=== PATIENT | male | born 1950 | race Two or more races ===

== ENCOUNTER 2024-11-13 13:08 | Emergency (ER) | payer OTHER, BC ==
[~2024-11-13] VITALS: Ht 182.9 cm; Wt 82.6 kg
[2024-11-13] MEDS ORDERED: ELIQUIS5 MG PO (13:45)
[2024-11-13 15:10] LABS: HEMOGLOBIN 13.7 g/dL (13-16.00); MEAN CELL VOLUME 92.9 fL (80.0-100.00); MEAN CORPUSCULAR HEMOGLOBIN 31.2 pg (27.00-32.0); MEAN CORPUSCULAR HGB CONC 33.5 g/dl (32.0-36.0); PLATELET COUNT 308 K/uL (150-450); RED BLOOD COUNT 4.41 M/uL (4.00-6.00); RED CELL DISTRIBUTION WIDTH 12.8 % (11.5-14.5)
[2024-11-13 15:15] LABS: ERYTHROCYTE SEDIMENTATION RATE 11 mm/hr
[2024-11-13 15:40] LABS: PARTIAL THROMBOPLASTIN TIME 28.7 SECONDS (22.0-34.0); PROTHROMBIN TIME 10.9 SECONDS (9.0-11.5)
[2024-11-13 15:49] LABS: ALBUMIN 3.1 gm/dL (3.4-5.0); BILIRUBIN TOTAL 0.43 mg/dL (0.3-1.2); CALCIUM 8.5 mg/dL (8.5-10.1); CREATININE SERUM 0.94 mg/dL (0.70-1.30); GFR 78.89; POTASSIUM 4.3 mEq/L (3.5-5.1); TOTAL PROTEIN 6.1 gm/dL (6.4-8.2)
[2024-11-13] MEDS ORDERED: KETOROLAC TROMETHAMINE 60 MG VIAL IM STA (16:40)
[2024-11-13] MEDS ORDERED: TRIAMCINOLONE ACETONIDE 40 MG/ML VIAL IM STA (16:40)
== END 2024-11-13 17:37 | disposition home or self-care (01) ==
LOC: ER 13:11
PROVIDERS: Internal Medicine Cardiovascular Disease
DX: S22.31XA Fracture of one rib, right side, initial encounter for closed fracture (principal); W10.8XXA Fall (on) (from) other stairs and steps, initial encounter; Y93.89 Activity, other specified; Y92.018 Other place in single-family (private) house as the place of occurrence of the external cause; Y99.9 Unspecified external cause status; J98.11 Atelectasis
CPT/HCPCS: 36415; 71250; 82803; 96372; 99284; J1885; J3301